=== PATIENT | male | born 1960 | race Caucasian/White ===

== ENCOUNTER 2018-12-06 05:58 | Observation (INO) | payer BC ==
[2018-12-05 10:33] LABS: BASOPHILS # (AUTO) 0.1 (0.0-0.1); BASOPHILS % 0.8 % (0.0-1.0); EOSINOPHILS # (AUTO) 0.1 (0.0-0.4); EOSINOPHILS % 1.2 % (0.0-6.0); HEMATOCRIT 42.4 % (38.2-49.6); HEMOGLOBIN 14.5 g/dL (14.0-18.0); LYMPHOCYTES # (AUTO) 1.8 (1.0-3.2); LYMPHOCYTES % 17.5 % (18.0-39.1); MEAN CORPUSCULAR HEMOGLOBIN 30.6 pg (28-32); MEAN CORPUSCULAR HGB CONC 34.2 g/dL (31-35); MEAN CORPUSCULAR VOLUME 89.5 fL (81-99); MONOCYTES % 9.1 % (4.4-11.3); NEUTROPHILS # (AUTO) 7.5 (2.1-6.9); NEUTROPHILS % 71.1 % (38.7-80.0); PLATELET COUNT 203 x10e3/uL (140-360); RED BLOOD COUNT 4.74 x10e6/uL (4.3-5.7); RED CELL DISTRIBUTION WIDTH 13.1 % (11.7-14.4)
[~2018-12-06] VITALS: Ht 167.6 cm; Wt 116.1 kg
[~2018-12-06 05:58] MED LIST: FISH OIL 1,0001 EAC2 PO; L-LYSINE500 M1 PO; MULTIVITAMINS1 EAC7 PO; [UNRECOGNIZED DRUG - OTHER] PO
[2018-12-06] MEDS ORDERED: ROPIVACAINE 246.25 MG, EPINEPHRINE HCL 1:1000 1ML 0.5 MG, CLONIDINE HCL 0.08 MG, KETORO... INJ ONE ×5 (06:15)
[2018-12-06] MEDS ORDERED: DEXAMETHASONE SOD PHOS 10 MG/1 ML VIAL ONE (06:42)
[2018-12-06] MEDS ORDERED: CELECOXIB 200 MG CAP ONE (06:42)
[2018-12-06] MEDS ORDERED: GABAPENTIN 300 MG CAP ONE (06:43)
[2018-12-06] MEDS ORDERED: CEFAZOLIN SOD 2 GM/D5W 50ML 50 ML IV ONE (06:43)
[2018-12-06] MEDS ORDERED: TRANEXAMIC ACID 1,000 MG/10 ML ML ONE (06:47)
[2018-12-06] MEDS ORDERED: BACITRACIN 50,000 UNIT VIAL ONE (06:47)
[2018-12-06] MEDS ORDERED: VANCOMYCIN HCL 500 MG ONE (06:55)
[2018-12-06] MEDS ORDERED: SODIUM CHLORIDE 0.9% 500ML 500 ML ONE (06:56)
[2018-12-06] MEDS ORDERED: FENTANYL CITRATE/PF 100MCG/2 ML INJ ONE (07:22)
[2018-12-06] MEDS ORDERED: MIDAZOLAM HCL 2 MG/2 ML VIAL ONE (07:22)
[2018-12-06] MEDS ORDERED: HYDROMORPHONE 2MG/ML 2 MG/ML ML ONE (08:31)
[2018-12-06] MEDS ORDERED: DIPHENHYDRAMINE HCL INJ 50 MG/ML VIAL IM/IV PRN (09:30)
[2018-12-06] MEDS ORDERED: KETOROLAC TROMETHAMINE 30 MG/ML VIAL IV PRN (09:30)
[2018-12-06] MEDS ORDERED: ONDANSETRON HCL INJ 2MG/ML 2ML 2 MG/ML VIAL IV PRN (09:30)
[2018-12-06] MEDS ORDERED: DOCUSATE SODIUM 100 MG CAP PO PRN (09:30)
[2018-12-06] MEDS ORDERED: PROMETHAZINE HCL (IM) 25 MG/ML VIAL IM PRN (09:30)
[2018-12-06] MEDS ORDERED: HYDROCODONE/APAP 7.5MG-325MG 1 EA TAB PO PRN (09:30)
[2018-12-06] MEDS ORDERED: HYDROCODONE/APAP 5MG-325MG TAB PO PRN (09:30)
[2018-12-06] MEDS ORDERED: ACETAMINOPHEN 650 MG SUPP PR PRN (09:30)
--- NOTE | 2018-12-06 10:34 | Operative Report ---
DATE OF PROCEDURE: December 06, 2018 INVESTMENT TRADER: Yan Martinez PA-C The patient was brought to the operating room for induction of anesthesia. Throughout this case, my PA's assistance was necessary for retraction of soft tissue and positioning of the extremity. This allows for efficient and technically successful execution of the operation and is considered medically necessary. PREOPERATIVE DIAGNOSIS: Osteoarthritis, right knee. POSTOPERATIVE DIAGNOSIS: Osteoarthritis, right knee. PROCEDURE: Right total knee arthroplasty, *added complexity secondary to body mass index greater than 43. INDICATIONS: The patient is a 58-year-old gentleman who has a long history of right knee pain. Clinic exam and x-ray findings are consistent with severe end-stage arthritic changes. He has failed extensive conservative management. He has attempted to lose weight. He states his symptoms are severely compromising his quality of life and activity level. He would like to proceed with a right knee replacement. The risks and benefits were explained. The added challenges and risks and potential for perioperative complications were discussed. He states he understands and wishes to proceed. DESCRIPTION OF PROCEDURE: The patient was brought to the operating room and placed under general anesthetic. He received a regional block, prophylactic antibiotics, and tranexamic acid in the holding area. His right lower extremity was prepped and draped in a sterile manner. Throughout the case, added time and personnel were necessary due to the patient's BMI over 43. A preoperative time-out was performed. The extremity was exsanguinated and a proximal tourniquet was inflated to 350 mmHg. A somewhat more extensile anterior approach was made to the right knee. A medial parapatellar arthrotomy was performed. Clear synovial fluid was removed from the joint. Soft tissue releases were performed to bring the knee up into flexion. The anterior cruciate ligament was chronically deficient. A [employer] Person[employer] knee system was used throughout the case. The proximal tibia was carefully exposed. Once again, added challenges were encountered due to the patient's altered surgical field and very stiff knee. An extramedullary cutting guide was used to resect the proximal tibia. There was complete loss of articular cartilage down to polished subchondral bone. The tibial baseplate was sized and the central fin punch was impacted. Attention was directed towards the distal femur. An intramedullary cutting guide was used to resect the distal femur in 5 degrees of valgus and external rotation referencing off of a combination of landmarks including Vin's line, the upper condylar axis and the posterior condyles. Roughly 3 degrees of external rotation was dialed in. The femoral component was a size number 9. The anterior and posterior cuts were made. Trial reductions were performed. A 10-mm medial congruent tibial insert provided appropriate soft tissue balancing in flexion and extension. The patella was resurfaced with a 32-mm patellar button. Extensive patellar osteophytes were removed. The patellar thickness was measured before and after resurfacing and was about 23 mm. The patellar tracking was noted to be concentric. The trial implants were then all removed. A 100-mL premixed pericapsular ELIJAH injection was placed into the surrounding soft tissue. The knee was thoroughly irrigated with a shower-tip pulsatile lavage. The components were cemented into place using high-viscosity Simplex cement pre-loaded with antibiotics. Care was taken to remove all extravasated cement. The wound was further irrigated while the cement cured. The arthrotomy was carefully closed with interrupted number 1 Ethibond. The knee was put through flexion and extension to ensure a secure closure. The skin was closed with subcuticular Vicryl and fior. A sterile Aquacel dressing was applied. A sterile wrap was applied. The patient was extubated and transported to the recovery room in stable condition. Blood loss was minimal. All needle and sponge counts were correct. Job#: [id number] VINCE
--- NOTE | 2018-12-06 10:39 | Diagnostic Imaging Report ---
KNEE RIGHT 1-2 VIEWS - 3 views HISTORY: Postop. COMPARISON: None available. FINDINGS: Bones: No acute displaced fracture. Osseous alignment is within normal limits. Joints: Status post total right knee arthroplasty with prosthesis in adequate position. Soft tissues: Postoperative soft tissue swelling and air. Multiple surgical skin fior. IMPRESSION: Status post total right knee arthroplasty with prosthesis in adequate position. Signed by: Dr. Jonathan Moore M.D. on 12/06/2018 10:36 AM
[2018-12-06] MEDS ORDERED: MORPHINE SULFATE INJ 4 MG/ML INJ 1ML ONE (12:34)
--- NOTE | 2018-12-06 12:42 | NUR ---
RECEIVED PT FROM SAHIL IN PACU. AWAITING FOR PT TO ARRIVE TO FLOOR
[2018-12-06 13:10] VITALS: BP 138/87
--- NOTE | 2018-12-06 13:10 | NUR ---
PT RESTING COMFORTABLY IN BED, IS AT BEDSIDE. PT DENIES ANY PAIN. PT HAD A RIGHT KNEE SX. JOEY WRAP COVERING KNEE. DRESSING IS DRY AND INTACT. PT HAS RIGHT FOOT ELEVATED WITH PILLOW BELOW FOOT FOR ELEVATION AND COMFORT. PT IS ON IV FLUIDS WITH NS AT 100 TO THE LEFT HAND 20. SITE IS CLEAN AND DRY. WILL CONTINUE TO CARE FOR PT AT THIS TIME. INSTRUCTED TO CALL BEFORE GETTING UP. SIDE RAILSX2, BED WHEELS LOCKED, CALL LIGHT IS WITHIN EASY REACH, INSTRUCTED TO CALL FOR ASSISTANCE IF NEEDED
[2018-12-06 13:17] VITALS: BP 138/87
[2018-12-06] MEDS: ACETAMINOPHEN 1000 MG/100 ML IV SCH ×2 (13:42→19:05)
[2018-12-06] MEDS: SODIUM CHLORIDE 0.9% 1000ML 1,000 ML IV SCH ×2 (13:42→19:27)
[2018-12-06] MEDS: CEFAZOLIN SOD 1 GM/NS 50ML 50 ML IV SCH ×2 (14:48→22:45)
[2018-12-06 16:29] VITALS: BP 126/70
[2018-12-06] MEDS: ASPIRIN 325 MG TAB PO SCH (16:47)
[2018-12-06] MEDS: CELECOXIB 200 MG CAP PO SCH (16:47)
--- NOTE | 2018-12-06 16:48 | NUR ---
PT VOIDED 350 CC OF URINE AT THIS TIME S.P SX
[2018-12-06] MEDS ORDERED: CELECOXIB 100 MG CAP PO SCH (17:00)
--- NOTE | 2018-12-06 17:11 | NUR ---
CPM STARTED AT 50 AT THIS TIME. PT TOLERATING WELL
[2018-12-06] MEDS ORDERED: ACETAMINOPHEN 1000 MG/100 ML IV ONE (17:44)
[2018-12-06] MEDS ORDERED: SEVOFLURANE INHAL SOLN 250 ML PEN BTL ONE (17:44)
[2018-12-06] MEDS ORDERED: LIDOCAINE HCL 2% LOCAL INJ 5 ML SDV VIAL INJ ONE (17:44)
[2018-12-06] MEDS ORDERED: ONDANSETRON HCL INJ 2MG/ML 2ML 2 MG/ML VIAL ONE (17:44)
[2018-12-06] MEDS ORDERED: DEXAMETHASONE SOD PHOS INJ 4 MG/ML VIAL ONE (17:44)
[2018-12-06] MEDS ORDERED: PROPOFOL IV EMULSION 10 MG/ML 20 ML VIAL ONE (17:44)
[2018-12-06] MEDS ORDERED: LIDOCAINE 2%/ EPINEPHRINE 20ML MDV ONE (17:50)
[2018-12-06] MEDS ORDERED: ROPIVACAINE 0.5% 5 MG/ML 30 ML SDV ONE (17:50)
--- NOTE | 2018-12-06 19:00 | NUR ---
RECEIVED AAOX3, DENIES PAIN, CPM REMOVED TOLERATED WELL. NO NEEDS AT THIS TIME. WILL CONTINUE TO MONITOR THE PATIENT CLOSELY. BED LOCKED AND IN LOWEST POSITION, CALL LIGHT WITHIN REACH.
[2018-12-06 20:00] VITALS: BP 127/63
[2018-12-06] MEDS ORDERED: ZOLPIDEM TARTRATE 5 MG TAB PO PRN (21:00)
[2018-12-06 21:15] VITALS: BP 127/63
[2018-12-07 00:33] VITALS: BP 127/67
[2018-12-07 04:00] VITALS: BP 120/68
[2018-12-07] MEDS ORDERED: SODIUM CHLORIDE 0.9% 250ML 250 ML ONE (05:08)
[2018-12-07] MEDS: SODIUM CHLORIDE 0.9% 1000ML 1,000 ML IV SCH (05:27)
[2018-12-07 05:55] LABS: HEMATOCRIT 37.1 % (38.2-49.6); HEMOGLOBIN 12.4 g/dL (14.0-18.0)
[2018-12-07] MEDS: ACETAMINOPHEN 1000 MG/100 ML IV SCH ×2 (05:55)
[2018-12-07] MEDS: CEFAZOLIN SOD 1 GM/NS 50ML 50 ML IV SCH (06:34)
[2018-12-07 08:02] VITALS: BP 136/71
[2018-12-07] MEDS ORDERED: ASPIRIN325 MG PO (08:57)
[2018-12-07] MEDS ORDERED: ACETAMINOPHEN 1000 MG/100 ML IV PRN (09:30)
[2018-12-07] MEDS: ASPIRIN 325 MG TAB PO SCH (09:46)
[2018-12-07] MEDS: CELECOXIB 200 MG CAP PO SCH (09:46)
[2018-12-07 12:04] VITALS: BP 146/88
--- NOTE | 2018-12-07 12:36 | NUR ---
CASE MANAGEMENT INITIAL ASSESSMENT Compounding Assistant to bedside to discuss plan of care with patient/family. CM/SW role and care transitions discussed. Anticipated discharge plan discussed along with duration of care. CM/SW discussed patients right to make decisions in care. CM/SW work hours given. Patient lives: with his Hilary Admit/Transfer: from PACU, came for planned procedure Hospital/ER visits since last admit: none POA/Emergency contact: Hilary Hagan [phone] Current/Previous Home Health: none; [facility] health [facility] by Dr. Leija's office. Choice letter signed and placed in chart. Copy to pt. PCP/Follow-up Care: Dr. Patricio; will follow up with Dr. Leija next Wednesday Current/Previous DME: none previously Medications (referring to index hospitalization or the first time you were in the hospital) a. Were changes made in your medications when you were in the hospital on [date of index hospitalization]? n/a b. Did you understand the changes? n/a c. Were you able to obtain your new medications right away? n/a d. Were you able to take your medications like the doctor wanted you to? n/a e. Did the hospital give you an accurate, easy to understand list of medications when you left? n/a Scale of 1-10 how comfortable does patient feel with disease management in outpatient setting: Other Services: none Employment Status: employed at [employer] Areas of Concerns: none Referral Needs: home health Education Needs: right knee replacement post op care IMM/VU given and signed (if applicable): n/a Goal for discharge: home with home health CM/SW left business card at the bedside with contact information. Name and number was also written on the patients whiteboard. Patient verbalized understanding of discussion. CM will follow-up with ongoing discharge and transition of care needs. DC plans pre-arranged by Dr. Leija's office as follows: Home health with [facility] - P [phone] / F [phone]; CM spoke with Natalia and informed her that pt is discharging today. She stated that pt will be seen tomorrow. Faxed clinicals. DME with [facility] - [phone]; walker is at bedside. Pt stated CPM and bedside commode has been delivered to his house.
[2018-12-07] MEDS ORDERED: TYLENOL WITH C1 EACH PO (13:41)
== END 2018-12-07 14:07 | disposition home health service (06) ==
LOC: OR 05:58 → PACU V 09:29 → MED/SURG 12:49
PROVIDERS: ADMIT Specialist; ATTEND Specialist
DX: M17.11 Unilateral primary osteoarthritis, right knee (principal); E66.01 Morbid (severe) obesity due to excess calories; Z68.41 Body mass index [BMI] 40.0-44.9, adult; Z01.812 Encounter for preprocedural laboratory examination; Z83.3 Family history of diabetes mellitus
CPT/HCPCS: 27447; 36415 ×2; 73560; 85014; 85018; 85025; 86850; 86900; 86920; 93005; 97116 ×2; 97162; 97530; C1713 ×2; C1776 ×3; G0378 ×2; J0131 ×2; J0171; J0690 ×3; J1100 ×2; J1170; J1885; J2001 ×2; J2250; J2270; J2405; J2704; J2795; J3370; J7030; J7040; J7050